=== PATIENT | male | born 1965 | race Caucasian/White ===

== ENCOUNTER 2025-07-10 10:50 | Outpatient (CLI) | payer MEDICARE, MEDICAID, SELFPAY ==
[2025-07-10 11:22] LABS: Hematocrit 44.8 % (40.0-54.0); Hemoglobin 13.9 g/dL (14.0-18.0); Mean Corpuscular HGB Conc 31.0 g/dL (32-36); Mean Corpuscular Hemoglobin 26.6 pg (27.0-31.0); Mean Corpuscular Volume 85.7 fL (78.0-102.0); Platelet Count Result 183 K/mm3 (150-420); Red Blood Count 5.23 M/mm3 (4.70-6.10); White Blood Count 9.5 K/mm3 (4.8-10.8)
[2025-07-10 12:10] LABS: Anion Gap 7 mmol/L (4-12); Blood Urea Nitrogen 16 mg/dL (9-20); Calcium 9.0 mg/dL (8.4-10.2); Carbon Dioxide 30 mmol/L (22-30); Chloride 101 mmol/L (98-107); Estimated Glomerular Filt Rate > 60; Glucose 101 mg/dL (65-110); Osmolality Calculated 287 mOsm/kg (285-295); Potassium 4.9 mmol/L (3.4-5.0); Sodium 138 mmol/L (137-145); Uric Acid 3.9 mg/dL (3.5-8.5)
--- OUTSIDE RECORDS SUMMARY | 2025-07-10 12:17 | XMS_ITS | Clinical Summary ---
Author Organization [facility] Address [address] [place] [address] Care Team Providers Care Clod Puller Name Role Phone Robert Pagan MD Primary Care Provider [phone] Allergies Active Allergy Reactions Criticality Noted Date Comments Fluphenazine Unknown 07/31/2017 Tolmetin Unknown 07/31/2017 Medications famotidine (PEPCID) 20 mg tablet Take 20 mg by mouth daily. Active allopurinol (ZYLOPRIM) 300 mg tablet Take 300 mg by mouth daily. Active metoprolol (LOPRESSOR) 25 mg tablet Take 25 mg by mouth daily. Active amantadine HCl 100 mg tablet Take 100 mg by mouth daily. Active cloZAPine (CLOZARIL) 100 mg tablet Take 100 mg by mouth 2 (two) times a day. Active losartan (COZAAR) 50 mg tablet Take 50 mg by mouth daily. Active bethanechol (URECHOLINE) 50 mg tablet Take 50 mg by mouth 4 (four) times a day. Active simvastatin (ZOCOR) 40 mg tablet Take 40 mg by mouth nightly. Active minocycline (DYNACIN) 50 mg tablet Take 50 mg by mouth every other day. Active divalproex ER (DEPAKOTE ER) 500 mg 24 hr tablet Take 500 mg by mouth daily. Active clonazePAM (KlonoPIN) 0.5 mg tablet Take 0.5 mg by mouth 2 (two) times a day. Active sodium chloride 1 gram tablet Take 1 g by mouth daily. Active Active Problems Problem Noted Date Diagnosed Date Rotator cuff strain, right, initial encounter SBO (small bowel obstruction) 12/16/2017 Assessment & Plan (12/16/2017 12:32 AM CDT): Patient with sudden onset of abdominal pain and fall after using the bathroom CT Consistent with SBO Repeat PE increased Tenderness and Abdominal distention EKG with intermittent Afib Clinical Presentation highly concerning for ischemic Bowel, possibly embolic cause Patient needs a STAT Surgery consult - Patient to be transferred to [facility] , admitting attending Dr. Salinsa Patient Currently on pressors, but hemodynamically stable Left lower quadrant pain 12/16/2017 Assessment & Plan (12/16/2017 12:34 AM CDT): Repeat Abdominal exam with worsening of the tenderness and distention Concern for ischemic bowel Plan as ablove Paroxysmal atrial fibrillation 12/16/2017 Assessment & Plan (12/16/2017 12:36 AM CDT): Patient With intermittent Afib No Prior h/o Afib Not on OAC Or Antiplatelets Will hold Off starting heparin in anticipation for possible STAT laparotomy. Sepsis 12/15/2017 Assessment & Plan (12/16/2017 12:27 AM CDT): Right IJ line In place IVFwith NS Currently on levophed drip Started making urine output after 3 L of IVF bolus On Vanc And Zosyn BCx are pending Surgical History Surgery Date Site/Laterality Comments PORT PLACEMENT CHEST >5 YEARS 12/22/2017 N/A Medical History Medical History Date Comments Hypertension Gout GERD (gastroesophageal reflux disease) Schizophrenia Family History Medical History Relation Name Comments No Known Problems Brother No Known Problems Cousin No Known Problems Daughter No Known Problems Father No Known Problems Maternal Grandfather No Known Problems Maternal Grandmother No Known Problems Mother No Known Problems Other No Known Problems Paternal Grandfather No Known Problems Paternal Grandmother No Known Problems Sister No Known Problems Son Asthma Neg Hx Diabetes Neg Hx Heart failure Neg Hx Hyperlipidemia Neg Hx Hypertension Neg Hx Migraines Neg Hx Osteoarthritis Neg Hx Rashes / Skin problems Neg Hx Rheum arthritis Neg Hx Seizures Neg Hx Stroke Neg Hx Thyroid disease Neg Hx Relation Name Status Comments Brother Cousin Daughter Father Maternal Grandfather Maternal Grandmother Mother Other Paternal Grandfather Paternal Grandmother Sister Son Social History Tobacco Use Types Packs/Day Years Used Date Smoking Tobacco: Unknown Smokeless Tobacco: Never Alcohol Use Standard Drinks/Week Comments No 0 (1 standard drink = 0.6 oz pur e alcohol) Personal Safety Answer Date Recorded Have you ever been in or are you currently in a harmful physical or emotional relationship or is someone making you feel afraid or unsafe? Denies 01/23/2025 Sex and Gender Information Value Date Recorded Sex Assigned at Not on file Legal Sex Male 12:16 PM [employer] Gender Identity Not on file Sexual Orientation Not on file Last Filed Vital Signs Vital Sign Reading Time Taken Comments Blood Pressure 147/96 01/23/2025 6:20 PM CDT Pulse 74 01/23/2025 6:20 PM CDT Temperature 36.4 C (97.5 F) 01/23/2025 6:20 PM CDT Respiratory Rate 18 01/23/2025 6:20 PM CDT Oxygen Saturation 95% 01/23/2025 6:20 PM CDT Inhaled Oxygen Concentration - - Weight 111.1 kg (245 lb) 01/23/2025 6:20 PM CDT Height 180.3 cm (5' 11) 01/23/2025 6:20 PM CDT Body Mass Index 34.17 01/23/2025 6:20 PM CDT Plan of Treatment Health Maintenance Due Date Last Done Comments Colon Cancer Screening-Colonoscopy 1965 Depression Screening 1965 Hepatitis C Screening 1965 Prostate Cancer Screening-PSA 1965 DTaP/Tdap/Td Vaccine (1 - Tdap) 1976 Hepatitis B Screening 1983 Regular Well Visit/Exam 18-64 1983 Zoster Vaccine (1 of 2) 2015 Covid-19 Vaccine ( season) 2025 03/28/2022, 07/08/2021, 09/22/2020, Additional history exists Influenza Vaccine (#1) 2025 , 05/17/2023, 05/13/2022, Additional history exists Pneumococcal vaccine <65 Aged Out No longer eligible based on patient's age to complete this topic Insurance [employer]PA MEDICARE MEDICARE MEDICARE [facility] Address: [address] [address] [place] [address] [employer] Advance Directives For more information, please contact: [phone] * Full Code (Latest Code Status on File) Date Activated Date Inactivated Comments 12/15/2017 8:45 PM 12/16/2017 7:07 AM * Full Code Date Activated Date Inactivated Comments 12/15/2017 6:28 PM 12/15/2017 8:45 PM Care Teams Clod Puller Relationship Specialty Start Date End Date Robert Pagan MD [address] [place] [address] PCP - General 05/03/17
== END 2025-07-10 10:51 | disposition home or self-care (01) ==
PROVIDERS: PCP Family Medicine; Visit Provider Family Medicine
DX: I10 Essential (primary) hypertension (principal); M10.9 Gout, unspecified
CPT/HCPCS: 36415; 80048; 84550; 85027